=== PATIENT | male | born 1990 | race Caucasian/White ===

== ENCOUNTER 2017-01-17 22:34 | Emergency (ER) | payer SELFPAY ==
[~2017-01-17] VITALS: Ht 172.7 cm; Wt 63.5 kg
[2017-01-17 22:42] VITALS: BP 113/58
[2017-01-17] MEDS ORDERED: ACYCLOVIR 200 MG CAPSULE ONE (23:13)
[2017-01-17] MEDS ORDERED: AZITHROMYCIN 250 MG TABLET ONE (23:22)
[2017-01-17] MEDS ORDERED: LIDOCAINE /MPF 1% VIAL 5 ML VIAL ONE (23:22)
[2017-01-17] MEDS ORDERED: ONDANSETRON 4 MG TAB.RAPDIS ONE (23:22)
[2017-01-17] MEDS ORDERED: CEFTRIAXONE 500 MG VIAL ONE (23:22)
[2017-01-17] MEDS ORDERED: ACYCLOVIR 200 MG CAPSULE PO ONE (23:30)
[2017-01-17] MEDS ORDERED: ONDANSETRON 4 MG TAB.RAPDIS SL ONE (23:30)
[2017-01-17] MEDS ORDERED: AZITHROMYCIN 250 MG TABLET PO ONE (23:30)
[2017-01-17] MEDS ORDERED: CEFTRIAXONE 500 MG VIAL IM ONE (23:30)
== END 2017-01-17 23:44 | disposition home or self-care (01) ==
LOC: ER 22:34
DX: H10.9 Unspecified conjunctivitis (principal); B00.89 Other herpesviral infection
CPT/HCPCS: 96372; 99283; A4606; J0696; J3490; Q0162; Z7610